=== PATIENT | female | born 1985 | race Caucasian/White ===

== ENCOUNTER 2021-01-17 21:24 | Emergency (ER) | payer OTHER ==
[2021-01-17 22:03] LABS: HEMOGLOBIN 11.9 gm/dl (12.3-15.3); RED BLOOD COUNT 3.54 M/UL (4.00-5.10); WHITE BLOOD COUNT 8.1 K/UL (4.5-11.0)
[2021-01-17 22:19] LABS: BUN/CREATININE RATIO 8 (0-10)
[2021-01-18] MEDS ORDERED: IBUPROFEN600 MG PO (01:45)
[2021-01-18] MEDS ORDERED: ZOFRAN4 MG PO (01:45)
== END 2021-01-18 02:00 | disposition home or self-care (01) ==
LOC: ER1 21:24
PROVIDERS: Physician Assistant Medical
DX: R10.9 Unspecified abdominal pain (principal); R51.9 Headache, unspecified; R11.2 Nausea with vomiting, unspecified; E11.9 Type 2 diabetes mellitus without complications; I10 Essential (primary) hypertension; E03.9 Hypothyroidism, unspecified; Z88.8 Allergy status to other drugs, medicaments and biological substances; Z88.1 Allergy status to other antibiotic agents; Z20.822 Contact with and (suspected) exposure to COVID-19
CPT/HCPCS: 71045; 80053; 80307; 81001; 82009; 82550; 82553; 83605; 83874; 84484; 84703; 85025; 93005; 96374; 99284; G0480; J2405; J7030; U0002

== ENCOUNTER 2021-07-01 14:59 | Emergency (ER) | payer OTHER ==
[~2021-07-01 14:59] MED LIST: IBUPROFEN600 MG PO; ZOFRAN4 MG PO
[2021-07-01 15:26] LABS: HEMOGLOBIN 13.5 gm/dl (12.3-15.3); RED BLOOD COUNT 4.05 M/UL (4.00-5.10); WHITE BLOOD COUNT 7.5 K/UL (4.5-11.0)
[2021-07-01 15:59] LABS: BUN/CREATININE RATIO 12 (0-10)
== END 2021-07-01 21:31 | disposition home or self-care (01) ==
LOC: ER1 14:59
PROVIDERS: Nurse Practitioner
DX: R07.89 Other chest pain (principal); E10.9 Type 1 diabetes mellitus without complications; Z20.822 Contact with and (suspected) exposure to COVID-19; Z88.0 Allergy status to penicillin; Z88.1 Allergy status to other antibiotic agents
CPT/HCPCS: 0240U; 71045; 80053; 82550; 82553; 84484; 85025; 85379; 93005; 99285; Q9967